=== PATIENT | male | born 1965 | race African-American/Black ===

== ENCOUNTER 2022-02-05 01:06 | Emergency (ER) | payer MEDICAID ==
[~2022-02-05] VITALS: Ht 185.4 cm; Wt 72.1 kg
[2022-02-05 01:09] VITALS: BP 160/96
--- NOTE | 2022-02-05 01:12 | NUR ---
TO LOBBY A/W BED AMBULATORY
--- NOTE | 2022-02-05 02:12 | NUR ---
PT AMBULATED TO BED #5
--- NOTE | 2022-02-05 02:19 | NUR ---
DR. SHAFFER AT BEDSIDE FOR EVALUTION
[2022-02-05] MEDS ORDERED: NAPR-54 PO (02:26)
[2022-02-05] MEDS ORDERED: CEPH500C16 PO (02:26)
--- NOTE | 2022-02-05 02:29 | NUR ---
PT SEEN, ASSESED AND DISCHARGED BY DR. SHAFFER
[2022-02-05 02:43] VITALS: BP 158/90
--- NOTE | 2022-02-05 02:43 | NUR ---
PT SEEN , ASSESSED, AND DISCHARGED BY DR. SHAFFER
--- NOTE | 2022-02-05 02:43 | NUR ---
Patient discharged with v/s stable. Written and verbal after care instructions given and explained. Patient alert, oriented and verbalized understanding of instructions. Ambulatory with steady gait. All questions addressed prior to discharge. ID band removed. Patient advised to follow up with PMD. Rx of KEFLEX AND NAPROSYN given. Opportunity to ask questions provided and answered.
--- NOTE | 2022-02-05 02:53 | NUR ---
Note rufus in EDM - 02/05/22 at 0256 by FANTA Patient discharged with v/s stable. Written and verbal after care instructions given and explained. Patient alert, oriented and verbalized understanding of instructions. Ambulatory with steady gait. All questions addressed prior to discharge. ID band removed. Patient advised to follow up with PMD. Rx of KEFLEX AND NAPROSYN given. Opportunity to ask questions provided and answered.
--- NOTE | 2022-02-05 04:16 | NUR ---
The patient's care was reviewed and supervised by Sofy Hopkins RN.
== END 2022-02-05 02:43 | disposition home or self-care (01) ==
LOC: MED 01:06
DX: L03.012 Cellulitis of left finger (principal); Z79.1 Long term (current) use of non-steroidal anti-inflammatories (NSAID); Z79.2 Long term (current) use of antibiotics
CPT/HCPCS: 99283